=== PATIENT | female | born 1975 | race Caucasian/White ===

== ENCOUNTER → 2016-12-18 16:28 | Outpatient (CLI) | payer MEDICAID ==
[2014-05-20 10:06] VITALS: BMI 18.1
[~2016-12-18 16:28] MED LIST: BENTYL10 MG PO; CATAPRES0.2 MG PO; CYMBALTA30 MG PO; HYDROCHLOROTHIA25 MG PO; HYDROCODONE-APA1 TAB PO; IBUPROFEN600 MG PO; LISINOPRIL10 MG PO; ROBAXIN500 MG PO; ZANAFLEX4 MG PO
== END | disposition home or self-care (01) ==
LOC: D.MAMMO 10:30 → D.US 01-03 15:00 → D.MAMMO 01-05 09:30
DX: N60.09 Solitary cyst of unspecified breast (principal); N64.52 Nipple discharge

== ENCOUNTER → 2017-05-16 15:29 | Outpatient (CLI) | payer MEDICAID ==
[2014-05-20 10:06] VITALS: BMI 18.1
== END | disposition home or self-care (01) ==
LOC: D.MRI 15:29
DX: M54.5 Low back pain (principal)

== ENCOUNTER 2019-04-20 13:24 | Emergency (ER) | payer MEDICAID ==
[~2019-04-20] VITALS: Ht 167.6 cm; Wt 55.5 kg
[2019-04-20 13:27] VITALS: Ht 167.6 cm; Wt 55.5 kg
[2019-04-20] MEDS ORDERED: NORVASC5 MG PO (13:30)
[2019-04-20 14:03] VITALS: BP 156/106
[2019-04-20 15:00] LABS: APPEARANCE SL CLDY (CLEAR); BILIRUBIN NEGATIVE (NEGATIVE); COLOR STRAW (YELLOW); GLUCOSE NEGATIVE (NEGATIVE); KETONE NEGATIVE (NEGATIVE); NITRITE NEGATIVE (NEGATIVE); PROTEIN NEGATIVE (NEGATIVE); SPECIFIC GRAVITY 1.015 (1.005-1.020); UROBILINOGEN NORMAL (NORMAL)
[2019-04-20 15:02] LABS: BASOPHILS 0.3 % (0-2); EOSINOPHILS 1.9 % (0-7); HEMATOCRIT 40.3 % (36.0-48.0); HEMOGLOBIN 14.9 g/dL (12-16); IMMATURE GRANULOCYTES 0.1 % (0-5); LYMPHOCYTES 26.7 % (15-50); MCH 30.9 pg (26.0-34.0); MCV 83.6 fL (80.0-100.0); MEAN PLATELET VOLUME 11.8 fL (7.4-10.4); MONOCYTES 4.4 % (2-11); NEUTROPHILS 66.6 % (40-80); PLATELET COUNT 215 10x3/uL (130-400); RBC 4.82 10x6/uL (4.00-5.40); RDW 12.5 % (11.5-14.5); WBC 7.2 10x3/uL (4.8-10.8)
[2019-04-20 15:05] LABS: UDS - AMPHET NEGATIVE QUAL (NEGATIVE); UDS - BARB NEGATIVE QUAL (NEGATIVE); UDS - BENZO NEGATIVE QUAL (NEGATIVE); UDS - COCAINE NEGATIVE QUAL (NEGATIVE); UDS - OPIATE POSITIVE QUAL (NEGATIVE); UDS - PCP NEGATIVE QUAL (NEGATIVE); UDS - THC NEGATIVE QUAL (NEGATIVE)
[2019-04-20 15:18] LABS: ALBUMIN 4.4 g/dL (3.4-5.0); ALKALINE PHOSPHATASE 73 U/L (46-116); ALT (SGPT) 12 U/L (10-68); BILIRUBIN - TOTAL 0.74 mg/dL (0.2-1.3); CALC OSMOLALITY 288 mosm/kg (275-300); CALCIUM 8.5 mg/dL (8.5-10.1); CARBON DIOXIDE 24.3 mmol/L (21.0-32.0); CHLORIDE - SERUM 109 mmol/L (98-107); CREATININE - SERUM 0.9 mg/dL (0.6-1.3); GLUCOSE 83 mg/dL (74-106); POTASSIUM - SERUM 3.8 mmol/L (3.5-5.1); PROTEIN - SERUM 6.4 g/dL (6.4-8.2); SODIUM 144 mmol/L (136-145); UREA NITROGEN 22 mg/dL (7-18); eGFR NON AFRICAN AMERICAN 73 mL/min (90-120)
[2019-04-20 15:27] LABS: MAGNESIUM - SERUM 2.3 mg/dL (1.8-2.4)
[2019-04-20 15:34] LABS: TROPONIN-I < 0.017 ng/mL (0.000-0.060)
[2019-04-20 16:09] LABS: ERYTHROCYTE SEDIMENTATION RATE 3 mm/hr (0-20)
== END 2019-04-20 18:15 | disposition home or self-care (01) ==
LOC: D.ER 13:24
PROVIDERS: Family Medicine
DX: R51 Headache (principal)

== ENCOUNTER 2019-10-16 16:55 | Emergency (ER) | payer MEDICAID ==
[~2019-10-16] VITALS: Ht 167.6 cm; Wt 57.7 kg
[~2019-10-16 16:55] MED LIST changes: +NORVASC5 MG PO
[2019-10-16 17:21] VITALS: Ht 167.6 cm; Wt 57.7 kg
[2019-10-16 17:48] LABS: BASOPHILS 0.1 % (0-2); EOSINOPHILS 3.5 % (0-7); HEMATOCRIT 39.3 % (36.0-48.0); HEMOGLOBIN 14.5 g/dL (12-16); IMMATURE GRANULOCYTES 0.1 % (0-5); LYMPHOCYTES 31.6 % (15-50); MCH 30.6 pg (26.0-34.0); MCHC 36.9 g/dL (31.0-37.0); MCV 82.9 fL (80.0-100.0); MEAN PLATELET VOLUME 11.2 fL (7.4-10.4); MONOCYTES 3.7 % (2-11); PLATELET COUNT 219 10x3/uL (130-400); RBC 4.74 10x6/uL (4.00-5.40); RDW 12.2 % (11.5-14.5); WBC 7.1 10x3/uL (4.8-10.8)
[2019-10-16 17:53] LABS: CALC OSMOLALITY 283 mosm/kg (275-300); CALCIUM 8.6 mg/dL (8.5-10.1); CARBON DIOXIDE 25.2 mmol/L (21.0-32.0); CHLORIDE - SERUM 105 mmol/L (98-107); CREATININE - SERUM 0.9 mg/dL (0.6-1.3); GLUCOSE 73 mg/dL (74-106); POTASSIUM - SERUM 3.4 mmol/L (3.5-5.1); SODIUM 142 mmol/L (136-145); UREA NITROGEN 19 mg/dL (7-18); eGFR NON AFRICAN AMERICAN 73 mL/min (90-120)
[2019-10-16 18:01] LABS: ALBUMIN 4.5 g/dL (3.4-5.0); ALKALINE PHOSPHATASE 93 U/L (30-120); ALT (SGPT) 18 U/L (10-68); AMYLASE - SERUM 69 U/L (25-115); BILIRUBIN - TOTAL 0.67 mg/dL (0.2-1.3); LIPASE 266 U/L (73-393); PROTEIN - SERUM 7.1 g/dL (6.4-8.2); TROPONIN-I < 0.017 ng/mL (0.000-0.060)
[2019-10-16 18:49] LABS: BILIRUBIN NEGATIVE (NEGATIVE); GLUCOSE NEGATIVE (NEGATIVE); KETONE NEGATIVE (NEGATIVE); NITRITE NEGATIVE (NEGATIVE); UROBILINOGEN NORMAL (NORMAL)
[2019-10-16 20:11] VITALS: BP 156/101
== END 2019-10-16 20:11 | disposition home or self-care (01) ==
LOC: D.ER 16:55
PROVIDERS: Emergency Medicine
DX: R14.0 Abdominal distension (gaseous) (principal); Z98.890 Other specified postprocedural states

== ENCOUNTER → 2019-10-22 19:32 | Outpatient (CLI) | payer MEDICAID ==
[2019-10-16 17:21] VITALS: BMI 20.5
[2019-10-22 19:47] LABS: BASOPHILS 0.3 % (0-2); EOSINOPHILS 2.7 % (0-7); HEMATOCRIT 34.9 % (36.0-48.0); HEMOGLOBIN 12.4 g/dL (12-16); IMMATURE GRANULOCYTES 0.2 % (0-5); LYMPHOCYTES 33.8 % (15-50); MCH 29.8 pg (26.0-34.0); MCHC 35.5 g/dL (31.0-37.0); MCV 83.9 fL (80.0-100.0); MEAN PLATELET VOLUME 11.4 fL (7.4-10.4); PLATELET COUNT 236 10x3/uL (130-400); RBC 4.16 10x6/uL (4.00-5.40); RDW 12.5 % (11.5-14.5); WBC 6.6 10x3/uL (4.8-10.8)
== END | disposition home or self-care (01) ==
LOC: D.LAB 19:32
PROVIDERS: ATTEND Internal Medicine Gastroenterology
DX: R19.5 Other fecal abnormalities (principal); R10.9 Unspecified abdominal pain

== ENCOUNTER 2020-02-06 17:10 | Inpatient (IN) | payer SELFPAY ==
[~2020-02-06] VITALS: Ht 167.6 cm; Wt 60.8 kg
[2020-02-06 17:42] LABS: BASOPHILS 0.3 % (0-2); EOSINOPHILS 2.2 % (0-7); HEMATOCRIT 41.7 % (36.0-48.0); HEMOGLOBIN 14.7 g/dL (12-16); IMMATURE GRANULOCYTES 0.3 % (0-5); LYMPHOCYTES 23.6 % (15-50); MCH 28.2 pg (26.0-34.0); MCHC 35.3 g/dL (31.0-37.0); MCV 79.9 fL (80.0-100.0); MEAN PLATELET VOLUME 11.9 fL (7.4-10.4); MONOCYTES 6.3 % (2-11); NEUTROPHILS 67.3 % (40-80); PLATELET COUNT 235 10x3/uL (130-400); RBC 5.22 10x6/uL (4.00-5.40); RDW 13.6 % (11.5-14.5); WBC 6.9 10x3/uL (4.8-10.8)
[2020-02-06 17:51] LABS: ANION GAP 10.7 mmol/L (8-16); CALCIUM 8.8 mg/dL (8.5-10.1); CARBON DIOXIDE 29.8 mmol/L (21.0-32.0); CREATININE - SERUM 1.1 mg/dL (0.6-1.3); POTASSIUM - SERUM 3.5 mmol/L (3.5-5.1)
[2020-02-06 17:56] LABS: ALBUMIN 4.3 g/dL (3.4-5.0); BILIRUBIN - TOTAL 0.42 mg/dL (0.2-1.3)
[2020-02-06 18:00] LABS: INR 0.95 (0.85-1.17); PROTIME 12.6 SECONDS (11.6-15.0)
[2020-02-06 18:01] LABS: APTT 30.1 SECONDS (22.8-39.4)
[2020-02-06 18:02] LABS: D-DIMER-QUANTITATIVE < 0.27 ug/mLFEU (0.20-0.54)
[2020-02-06 18:26] VITALS: BP 166/107
--- NOTE | 2020-02-06 19:08 | NUR ---
REPORT GIVEN TO PONCHO
--- NOTE | 2020-02-06 19:20 | NUR ---
PT COMPLAINS OF SUDDEN ONSET OF CHEST PAIN, EPIGASTRIC AREA THAT RADIATES THROUGH TO HER BACK, SHE CANNOT CATCH HER BREATH.
[2020-02-06] MEDS ORDERED: HYDROCODON-ACE1 EA10 PO (19:31)
[2020-02-06] MEDS ORDERED: CATAPRES0.2 MG PO (19:31)
[2020-02-06] MEDS ORDERED: ZANAFLEX4 MG PO (19:31)
[2020-02-06 19:48] VITALS: BP 142/100
[2020-02-06 20:14] VITALS: BP 136/91
--- NOTE | 2020-02-06 21:01 | NUR ---
PT COMPLAINING OF SUDDEN ONSET OF "PAIN IN THE CHEST STOMACH AREA BACK, IT WAS BETTER FOR AWHILE BUT NOW ITS BACK AND WORSE"
[2020-02-07] VITALS (7 sets, daily range): BP systolic 141–168; BP diastolic 79–94; BMI 19.9
[2020-02-07] MEDS ORDERED: NORVASC10 MG PO (00:12)
[2020-02-07] MEDS ORDERED: TOPAMAX100 MG PO (00:14)
[2020-02-07] MEDS ORDERED: METHOCARBAMOL500 MG PO (00:16)
--- NOTE | 2020-02-07 08:00 | NUR ---
AM ROUNDS- PT RESTING COMFORTABLY IN BED, RATES PAIN LEVEL OF 6/10. CANNOT HAVE ANY PAIN MEDICATION YET. PT DENIES ANY OTHER NEEDS AT THIS TIME. RT FA INFUSING D5 1/2NS AT 30CC/HR. CALL LIGHT IN REACH, BEDSIDE RAILS X2, NAD NOTED, WILL CONTINUE PLAN OF CARE.
[2020-02-07 13:23] LABS: CKMB 1.6 U/L (0.0-3.6); CREATINE KINASE 95 UL (21-215)
[2020-02-07 13:31] LABS: TROPONIN-I < 0.017 ng/mL (0.000-0.060)
--- NOTE | 2020-02-07 13:56 | NUR ---
1MG OF DILAUDID GIVEN FOR PAIN LEVEL OF 8/10. PT DENIES ANY OTHER NEEDS AT THIS TIME. CALL LIGHT IN REACH, NAD NOTED, WILL CONTINUE TO MONITOR.
[2020-02-07 16:47] LABS: AMYLASE - SERUM 50 U/L (25-115); LIPASE 70 U/L (73-393)
[2020-02-07 19:07] LABS: CKMB 1.6 U/L (0.0-3.6); CREATINE KINASE 89 UL (21-215)
[2020-02-07 19:08] LABS: TROPONIN-I < 0.017 ng/mL (0.000-0.060)
--- NOTE | 2020-02-07 19:45 | NUR ---
REPORT RECIEVED, INITIAL ROUNDS COMPLETED. PT VERY UPSET. SHE HAS A 22G IV AND NEEDS A 20G TO HAVE A CTA DONE. STAFF HAVE BEEN UNABLE TO SITE A 20G. EVALUATED PT AND DO NOT SEE ANY SITE THAT COULD TAKE GREATER THAN A 22G. CALL TO ER AND SPOKE WITH IAN/IV NURSE. SHE CAME TO ROOM. ATTEMPTED TO SITE A 20 X 2 WITH NO SUCCESS. STATES VEINS ARE TOO SMALL. ALL ATTEMPTS IN HOUSE HAVE BEEN MADE WITH NO SUCCESS. RADIOLOGY STATES SHE MUST HAVE A 20 G FOR THE CTA OR MD CAN BE CONTACTED TO SEE IF HE WANTS TO DO THE EQUIVALENT WITH A VQSCAN. PAGING DR SANTOS NOW.
--- NOTE | 2020-02-07 21:34 | NUR ---
HAVE CALLED DIFFERENT RADIOLOGY EXTENSIONS WITH NO ANSWERS TO TELL THEM DR SANTOS WANTS THE VQ SCAN STAT. WILL CONTINUE TO TRY AND REACH. ORDER IS IN THE COMPUTER.
[2020-02-08 00:39] LABS: BILIRUBIN NEGATIVE (NEGATIVE); GLUCOSE NEGATIVE (NEGATIVE); KETONE NEGATIVE (NEGATIVE); NITRITE NEGATIVE (NEGATIVE); SPECIFIC GRAVITY 1.015 (1.005-1.020); UROBILINOGEN NORMAL (NORMAL)
[2020-02-08 05:41] LABS: HEMATOCRIT 43.1 % (36.0-48.0); HEMOGLOBIN 14.7 g/dL (12-16); LYMPHOCYTES 29.1 % (15-50); MCH 27.2 pg (26.0-34.0); MCHC 34.1 g/dL (31.0-37.0); MCV 79.8 fL (80.0-100.0); MEAN PLATELET VOLUME 12.7 fL (7.4-10.4); NEUTROPHILS 65.7 % (40-80); PLATELET COUNT 210 10x3/uL (130-400); WBC 7.1 10x3/uL (4.8-10.8)
[2020-02-08 06:00] LABS: CALCIUM 9.1 mg/dL (8.5-10.1); CHLORIDE - SERUM 103 mmol/L (98-107); CKMB 1.1 U/L (0.0-3.6); CREATINE KINASE 66 UL (21-215); CREATININE - SERUM 1.1 mg/dL (0.6-1.3); MAGNESIUM - SERUM 2.3 mg/dL (1.8-2.4); SODIUM 137 mmol/L (136-145); TROPONIN-I < 0.017 ng/mL (0.000-0.060); eGFR NON AFRICAN AMERICAN 58 mL/min (90-120)
[2020-02-08 06:01] LABS: CALC OSMOLALITY 276 mosm/kg (275-300); GLUCOSE 130 mg/dL (74-106); UREA NITROGEN 16 mg/dL (7-18)
--- NOTE | 2020-02-08 06:18 | NUR ---
AM MEDS GIVEN. C/O HEADACHE, BP CHECKED AND 113/89. RECIEVED IV DILAUDID BACK AT 0430. CPOC.
[2020-02-08 08:02] VITALS: BP 108/43
--- NOTE | 2020-02-08 08:39 | NUR ---
AM MEDS GIVEN AT THIS TIME. ALSO GAVE 1MG OF DILAUDID FOR PAIN LEVEL OF 6/10. 4MG OF ZOFRAN GIVEN FOR NAUSEA. PT DENIES ANY OTHER NEEDS AT THIS TIME. MONITOR SHOWING SB WITH RATE OF 50. RT FA IV SL. CALL LIGHT IN REACH, NAD NOTED, WILL CONTINUE TO MONITOR.
[2020-02-08 11:39] VITALS: BP 125/71
--- NOTE | 2020-02-08 13:00 | NUR ---
PT RESTING COMFORTABLY IN BED, STATES THAT SHE JUST DOES NOT FEEL GOOD TODAY. DENIES ANY NEEDS AT THIS TIME. CALL LIGHT IN REACH, NAD NOTED, WILL CONTINUE TO MONITOR.
--- NOTE | 2020-02-08 13:45 | NUR ---
2MG OF DILAUDID GIVEN FOR PAIN LEVEL OF 8/10, ALSO GAVE 4MG OF ZOFRAN. PT SIGNED CONSENTS FOR EGD IN THE AM AND PLACED ON CHART. PT DENIES ANY OTHER NEEDS AT THIS TIME.C ALL LIGHT IN REACH, NAD NOTED, WILL CONTINUE TO MONITOR.
[2020-02-08 15:48] VITALS: BP 132/79
--- NOTE | 2020-02-08 18:25 | NUR ---
CALLED WIL WARD AND INFORMED HIM THAT PT IS REQUESTING SOMETHING TO HELP HER HAVE BM. NEW ORDER FOR 100MG OF COLACE BID.
--- NOTE | 2020-02-08 19:40 | NUR ---
REPORT RECIEVED AND INITIAL ROUNDS COMPLETED. PT RESTING IN BED. PLANNING TO SHOWER TONIGHT IN PREPARATION FOR AM EGD. INSTRUCT ON NPO AFTER MIDNIGHT. PT TELLS NURSE TO NOT BRING ANY BEDTIME MEDS UNTIL IT IS ALSO TIME FOR HER TO GET ANOTHER PAIN SHOT. CPOC.
[2020-02-08 20:00] VITALS: BP 136/73
--- NOTE | 2020-02-08 21:00 | NUR ---
PT HAS SHOWERED AND IS NOW BACK IN BED. REQUESTING FOOD, PROVIDED SANDWICH TRAY AND PEANUT BUTTER AND CRACKERS.
--- NOTE | 2020-02-08 23:18 | NUR ---
ALL BEDTIME MEDS GIVEN. IV ZOFRAN AND IV DILAUDID GIVEN FOR ONGOING NAUSEA/NO EMESIS AND PAIN TO CHEST THAT HURTS WHEN SHE BREATHS IN/OUT AND HER RIGHT LEG ALSO IS IN PAIN. PT QUESTIONING IF SHE SHOULD PUT THE JUSTUS WRAP AND HEAT BACK ON HER RIGHT LEG BECAUSE "DON" TOLD HER TOO. EXPLAINED TO PATIENT THAT THERE ARE NO ORDERS FOR THIS AND TYPICALLY DVT'S ARE PUT ON BEDREST, BUT NOT PRESSURE WRAPPED OR HEATED. PT STATES SHE WILL LEAVE IT OFF UNTIL SHE CAN TALK TO HER DOCTOR AGAIN. REMINDED PT NPO AFTER MIDNIGHT. CPOC.
[2020-02-09] VITALS: BP 136/64
[2020-02-09 04:00] VITALS: BP 132/70
[2020-02-09 07:03] LABS: ANION GAP 12.4 mmol/L (8-16); CALCIUM 9.1 mg/dL (8.5-10.1); CARBON DIOXIDE 27.1 mmol/L (21.0-32.0); MAGNESIUM - SERUM 2.3 mg/dL (1.8-2.4); POTASSIUM - SERUM 3.5 mmol/L (3.5-5.1)
[2020-02-09 07:08] LABS: CREATININE - SERUM 1.4 mg/dL (0.6-1.3)
[2020-02-09 07:09] LABS: HEMATOCRIT 42.3 % (36.0-48.0); HEMOGLOBIN 14.8 g/dL (12-16); LYMPHOCYTES 26.4 % (15-50); MCH 27.7 pg (26.0-34.0); MCV 79.2 fL (80.0-100.0); MEAN PLATELET VOLUME 12.5 fL (7.4-10.4); NEUTROPHILS 66.7 % (40-80); PLATELET COUNT 188 10x3/uL (130-400); RBC 5.34 10x6/uL (4.00-5.40); RDW 13.6 % (11.5-14.5); WBC 6.4 10x3/uL (4.8-10.8)
--- NOTE | 2020-02-09 08:18 | NUR ---
PRE-OP MEDS GIVEN AT THIS TIME. ALSO GAVE 1MG OF DILAUDID 04/29. ALSO GAVE 4MG OF ZOFRAN. PT DENIES ANY OTHER NEEDS AT THIS TIME. CALL LIGHT IN REACH, NAD NOTED, WILL CONTINUE PLAN OF CARE.
--- NOTE | 2020-02-09 08:37 | NUR ---
PT TAKEN TO GI LAB.
[2020-02-09 09:13] VITALS: BP 145/81
--- NOTE | 2020-02-09 09:25 | NUR ---
RECEIVED PT BACK TO ROOM 212. VITAL SIGNS STABLE, PT DENIES ANY NEEDS AT THIS TIME. WILL CONTINUE TO MONITOR.
[2020-02-09 11:00] VITALS: BP 131/79
--- NOTE | 2020-02-09 12:13 | NUR ---
1MG OF DILAUDID GIVEN FOR PAIN LEVEL OF 9/10, ALSO GAVE 4MG OF ZOFRAN FOR NAUSEA. PT DENIES ANY OTHER NEEDS AT THIS TIME. NEW 22G IV STARTED BY FATIMAH VASCULAR NURSE TO RT FA. CALL LIGHT IN REACH, NAD NOTED, WILL CONTINUE TO MONITOR.
[2020-02-09 15:00] VITALS: BP 132/67
--- NOTE | 2020-02-09 16:22 | NUR ---
GAVE 1MG OF DILAUDID FOR PAIN LEVEL OF 7/10, ALSO GAVE ZOFRAN FOR NAUSEA. PT DENIES ANY OTHER NEEDS AT THIS TIME. CALL LIGHT IN REACH, NAD NOTED, WILL CONTINUE TO MONITOR.
[2020-02-09 20:00] VITALS: BP 136/85
--- NOTE | 2020-02-10 03:05 | NUR ---
I have reviewed this patient and I concur with the Shift Assessment completed by the Licensed Practical Nurse today this shift.
[2020-02-10 04:00] VITALS: BP 135/72
[2020-02-10 07:11] LABS: BASOPHILS 0.6 % (0-2); EOSINOPHILS 3.7 % (0-7); HEMATOCRIT 41.2 % (36.0-48.0); HEMOGLOBIN 14.3 g/dL (12-16); LYMPHOCYTES 34.8 % (15-50); MCH 27.3 pg (26.0-34.0); MCHC 34.7 g/dL (31.0-37.0); MCV 78.8 fL (80.0-100.0); MEAN PLATELET VOLUME 11.9 fL (7.4-10.4); MONOCYTES 8.2 % (2-11); NEUTROPHILS 52.7 % (40-80); RBC 5.23 10x6/uL (4.00-5.40); RDW 13.5 % (11.5-14.5); WBC 5.4 10x3/uL (4.8-10.8)
[2020-02-10 07:18] LABS: PLATELET COUNT 227 10x3/uL (130-400)
--- NOTE | 2020-02-10 07:20 | NUR ---
RECIEVE REPORT. RESTING IN BED WITH EYES CLOSED. NO SIGNS OF DISTRESS. CONTINUE PLAN OF CARE AND SAFETY PRECAUTIONS.
[2020-02-10 07:31] LABS: ANION GAP 11.4 mmol/L (8-16); CALCIUM 8.9 mg/dL (8.5-10.1); CREATININE - SERUM 1.1 mg/dL (0.6-1.3); MAGNESIUM - SERUM 2.2 mg/dL (1.8-2.4); POTASSIUM - SERUM 3.4 mmol/L (3.5-5.1)
[2020-02-10 09:00] VITALS: BP 129/65
--- NOTE | 2020-02-10 09:02 | MORECARE ---
CASE MANAGEMENT DISCHARGE SUMMARY PATIENT: GRETCHEN KLEIN UNIT: [id number] ADM DATE: 02/07/20 AGE: 44 : [birth year] SEX: F ROOM/BED: D.2618 AUTHOR: CHRISTINEDOC PHYSICIAN: REFERRING PHYSICIAN: JEANNINE SPRINGER MD DATE OF SERVICE: 02/10/20 Discharge Plan Patient Name: GRETCHEN KLEIN Facility: [facility]:[place] : 1975 Planned Disposition: Home or Self Care Anticipated Discharge Date: Discharge Date: Expected LOS: Initial Reviewer: [email or web address] Initial Review Date: 02/07/2020 Generated: 02/10/20 10:02 am Comments DCP- Discharge Planning Updated by [email or web address]: Chiquis Fulton on 02/10/20 7:[address] Patient Name: GRETCHEN KLEIN Admission Status: ER Accout number: [id number] Admission Date: 02-07-2020 : 1975 Admission Diagnosis: Attending: PASHA Current LOS: 3 Anticipated DC Date: Planned Disposition: Home or Self Care Primary Insurance: UNINSURED DISCOUNT PLAN Discharge Planning Comments: CM met with patient to complete initial dc planning assessment. CM educated patient on the CM role and verbal consent given by patient to complete assessment. CM verified patient's address, phone number, and emergency contact phone numbers. Patient lives at home with family. At discharge patient plans to return and feels this is a safe discharge. CM discussed availability of home health, rehab services, and medical equipment. Patient denied known discharge needs at this time. Transportation provider at discharge will be Anila Avila at [phone]. CM will continue to follow and will assist as needed with dc plans/needs. Core Feeder: Chiquis Fulton DCPIA - Discharge Planning Initial Assessment Updated by [email or web address]: Chiquis Fulton on 02/10/20 8:58 am * Is the patient Alert and Oriented? Yes * How many steps to enter\exit or inside your home? 0/0 * PCP [place] * Pharmacy [facility]/ [address] * Preadmission Environment Home with Family * ADLs Independent * Equipment None * List name and contact numbers for known caregivers / representatives who currently or will assist patient after discharge: Anila CAI [phone] * Verbal permission to speak to the caregivers and representatives has been obtained from the patient. Yes * Community resources currently utilized None * Additional services required to return to the preadmission environment? No * Can the patient safely return to the preadmission environment? Yes * Has this patient been hospitalized within the prior 30 days at any hospital? No Patient Name: GRETCHEN KLEIN Page [id number] at 0902 All edits/amendments must be made on the electronic document DICTATION DATE: 02/10/20901 MEAT GRINDER: ANGEL 02/10/20901 RPT#: [id number] DC DATE: STATUS: ADM IN [facility] [address] [place] [address] END OF REPORT
[2020-02-10 12:16] VITALS: BP 130/72
[2020-02-10 12:57] VITALS: Ht 167.6 cm; Wt 60.8 kg
--- NOTE | 2020-02-10 14:02 | EC ---
PATIENT:GRETCHEN KLEIN DATE OF SERVICE: 02/07/20 SEX: F MEDICAL RECORD: [id number] DATE OF : [birth year] LOCATION:D. D.212 AGE OF PATIENT: 44 ADMISSION DATE: 02/07/20 REFERRING PHYSICIAN: INTERPRETING PHYSICIAN: MICHELE SANTOS MD ECHOCARDIOGRAM REPORT ECHO CHARGES 4 ECHO COMPLETE Date: 02/08/20 CLINICAL DIAGNOSIS: CP ECHOCARDIOGRAPHIC MEASUREMENTS (adult normal given) AC root (d.<3.7cm) 3.1 cm LV Septum d (<1.2 cm> 1.3 cm Valve Excursion 1.1 cm LV Septum (systole) 1.7 cm Left Atria (s.<4.0cm> 2.9 cm LVPW d(<1.2cm) 1.1 cm RV (d.<2.3cm) 1.8 cm LVPW (sytole) 1.6 cm LV diastole(<5.6CM) 3.9 cm MV E-F(>70mm/sec) cm LV systole 2.6 cm LVOT Diameter 2.0 cm MV exc.(>10mm) cm Est.ejection fraction (50-75%) % DOPPLER: LVIT cm/sec A 57.0 cm/sec E 85.0 cm/sec LA cm/sec RVSP 19.3 mmHg LVOT 81.0 cm/sec AOP1/2T m/s Asc. Ao 141 cm/sec RVOT 62.0 cm/sec RA cm/sec PA 79.0 cm/sec AV Gradient Peak 8.0 mmHg AV Mean 3.9 mmHg AV Area 2.1 cm MV Gradient Peak 4.7 mmHg MV Mean 1.2 mmHg MV Area cm COMMENTS: Hotel Front Office Manager: Magnolia GALICIAOE Optical Technician: Britney Santos TAPE# PACS Pericardial Effusion N DATE OF SERVICE: 02/08/2020 PROCEDURE: Transthoracic echocardiogram. FINDINGS: 1. Left ventricle shows mild left ventricular hypertrophy. Overall, ejection fraction is normal at 55%. Inflow characteristics consistent with diastolic dysfunction. 2. Left atrium is normal size, shape, and function. 3. Mitral valve shows normal mitral valve structure. There is mild eccentric ECHOCARDIOGRAM REPORT [id number] GRETCHEN KLEIN mitral regurgitation. 4. The tricuspid valve is normal structure, normal function. RVSP is normal. 5. Aortic valve is normal structure and function. 6. Right ventricle is normal size, shape, and function. 7. Right atrium is normal. TRANSINT:[id number] Voice Confirmation ID: [id number] DOCUMENT ID: [id number] MICHELE SANTOS MD at 1402 CC: [id number] DICTATION DATE: 02/09/20 0723 BRAKE OPERATOR: 02/09/20 1256 ADM IN [facility] [address] [place] [address]
[2020-02-10] MEDS ORDERED: REGLAN10 MG PO (14:05)
[2020-02-10] MEDS ORDERED: CARAFATE1 G PO (14:05)
[2020-02-10] MEDS ORDERED: PROTONIX40 MG PO (14:11)
[2020-02-10] MEDS ORDERED: BUTALB-APAP-CA1 EACH PO (14:11)
--- NOTE | 2020-02-10 16:35 | NUR ---
ALERT AND ORIENTED X4. SITTING UP IN BED. DISCHARGE INSTRUCTIONS GIVEN VERBALLY AND WRITTEN. DISCHARGE PAPERS SIGNED ON CHART. DC LT WRIST IV TIP INTACT. ESCORT TO RIDE VIA WHEELCHAIR. REMAINS FREE FROM INJURY.
== END 2020-02-10 16:37 | disposition home or self-care (01) | DRG 313 ==
LOC: D.ER 17:10 → OBSVTIME 22:55 → D.M2 22:55 → D.ER 23:20 → D.M2 02-07 03:11
PROVIDERS: Family Medicine; Family Medicine Adult Medicine; Internal Medicine Gastroenterology; ADMIT Family Medicine; ATTEND Family Medicine
PROC: 0DB28ZX Excision of Middle Esophagus, Via Natural or Artificial Opening Endoscopic, Diagnostic (ICD-10-PCS; principal; 2020-02-09 08:42)
DX: R07.9 Chest pain, unspecified (principal); I25.110 Atherosclerotic heart disease of native coronary artery with unstable angina pectoris; N17.9 Acute kidney failure, unspecified; I25.10 Atherosclerotic heart disease of native coronary artery without angina pectoris; I10 Essential (primary) hypertension; K29.70 Gastritis, unspecified, without bleeding; K21.0 Gastro-esophageal reflux disease with esophagitis; M19.90 Unspecified osteoarthritis, unspecified site; G89.29 Other chronic pain; I80.9 Phlebitis and thrombophlebitis of unspecified site

== ENCOUNTER 2020-03-13 01:47 | Emergency (ER) | payer SELFPAY ==
[~2020-03-13] VITALS: Ht 167.6 cm; Wt 56.8 kg
[~2020-03-13 01:47] MED LIST changes: +BUTALB-APAP-CA1 EACH PO; +CARAFATE1 G PO; +HYDROCODON-ACE1 EA10 PO; +METHOCARBAMOL500 MG PO; +NORVASC10 MG PO; +PROTONIX40 MG PO; +REGLAN10 MG PO; +TOPAMAX100 MG PO
[2020-03-13 01:56] VITALS: Ht 167.6 cm; Wt 56.8 kg
[2020-03-13 03:58] VITALS: BP 126/72
== END 2020-03-13 03:58 | disposition home or self-care (01) ==
LOC: D.ER 01:47
DX: S00.83XA Contusion of other part of head, initial encounter (principal); R51 Headache; Y04.8XXA Assault by other bodily force, initial encounter; Y93.9 Activity, unspecified; Y92.9 Unspecified place or not applicable; I10 Essential (primary) hypertension; R11.0 Nausea; R42 Dizziness and giddiness; R41.0 Disorientation, unspecified